=== PATIENT | female | born 1995 | race Hispanic/Latino ===

== ENCOUNTER → 2024-03-15 06:27 | Outpatient (REF) | payer OTHER, SELFPAY ==
[2024-03-15 10:25] LABS: Beta HCG Quantitative < 2.39 mIU/ml
== END ==
LOC: CLINIC 06:27
PROVIDERS: ATTENDING PHYSICIAN Nurse Practitioner Adult Health
DX: N91.2 Amenorrhea, unspecified (principal)
CPT/HCPCS: 36415; 84702